=== PATIENT | male | born 1990 | race African-American/Black ===

== ENCOUNTER 2023-02-08 10:05 | Outpatient (AMB) | payer OTHER, SELFPAY ==
--- NOTE | 2023-02-08 10:15 | AM.OFFWIN_ITS ---
Intake Vital Signs 02/08/23 10:17 Height 5 ft 7 in Weight 220 lb BMI 34.5 BP 110/70 Blood Pressure Location Rt brachial Position Sitting Pulse 77 Pulse Source Pulse Oximeter Pulse Oximetry (%) 97 Oxygen Delivery Method Room Air Intake Visit Reasons: [employer] Pain in RT Wrist Intake Note: Patient here for right wrist pain that has been bothersome for about 1 week, he mentioned about 2 weeks ago he noticed some swelling in his knuckles but didnt think much of it but then pain started in wrist and then going into his hand. He states he has trouble with ROM. Patient Tobacco Use Status: Never used Tobacco Allergies peanuts Adverse Reaction (Severe, Uncoded 02/08/23 10:19) Anaphylaxis Do you need a note to return to daycare/school/sports/work: No HPI HPI Comments History of Present Illness Details This is a 32-year-old right hand dominant male with no stated past medical history presenting for evaluation of right wrist pain that he has had for the past week. Patient plays league football however denies any overt injury or trauma to his right wrist. patient seems he has pain with range of motion to his right volar wrist. Patient has not taken any medication for treatment of his discomfort. Additionally, patient is requesting testing for both gonorrhea and chlamydia. Patient denies any penile pain, skin lesions, new dysuria, penile discharge or new sexual contacts that are positive for gonorrhea or chlamydia. [facility] Social History Patient Tobacco Use Status: Never used Tobacco Review of Systems Const All systems reviewed & are unremarkable except as noted in HPI and below Musc Reports arthralgias (right wrist) and Denies joint swelling Skin/Breast Reports system reviewed and no additional complaints, except as documented Physical Exam Vital Signs: Last Vital Signs Pulse 77 02/08/23 10:17 BP 110/70 02/08/23 10:17 Pulse Ox 97 02/08/23 10:17 Oxygen Delivery Method Room Air 02/08/23 10:17 BMI result Body Mass Index 34.5 Const General: cooperative, healthy appearing, comfortable and well developed; No ill appearing Nutritional Appearance: average body habitus Orientation/consciousness: patient oriented x3 Limitations: no limitations Other: deferred by patient Skin General skin exam: no rashes or lesions noted Neuro General: patient oriented x3 Extrem General: Yes normal to inspection Right upper extremity: normal to inspection, full ROM (right wrist; no pain with supination/pronation) and wrist (right wrist) Details: normal to inspection and tenderness (volar surface ulnar aspect only; no induration, no erythema, no warmth); no unusual warmth Psych Appearance: grossly normal Mental Status: mental status grossly normal Insight: Good insight present (Psych) Judgement: Good judgement present (Psych) Assessment & Plan Assessment & Plan (1) Concern about STD in male without diagnosis: Comment: Urine gonorrhea and chlamydia testing will be sent. Code(s): Z71.1 - Person with feared health complaint in whom no diagnosis is made Plan: Patient instructed to use condoms with all sexual activity. (2) Sprain and strain of right wrist: Code(s): S63.501A - Unspecified sprain of right wrist, initial encounter; S66.911A - Strain of unspecified muscle, fascia and tendon at wrist and hand level, right hand, initial encounter Plan Patient placed in wrist splint and prescribed ibuprofen to take 4 times daily. Orders: Orders CT NG by PCR Today S63.501A - Unspecified sprain of right wrist, initial encounter, S66.911A - Strain of unspecified muscle, fascia and tendon at wrist and hand level, right hand, initial encounter, Z71.1 - Person with feared health complaint in whom no diagnosis is made Medications: New ibuprofen 600 mg PO Q6H PRN 30 tabs 0RF pain Coding Level of Care Code New Pt Level 4 (50772) Diagnoses Concern about STD in male without diagnosis Z71.1 Sprain and strain of right wrist S63.501A; S66.911A Time Spent (min) 25
[2023-02-08 10:17] VITALS: BP 110/70; PULSE 77; O2SAT 97; BMI 34.5
== END 2023-02-08 12:08 | disposition home or self-care (01) ==
PROVIDERS: Visit Provider Physician Assistant
DX: Z71.1 Person with feared health complaint in whom no diagnosis is made (principal); S63.501A Unspecified sprain of right wrist, initial encounter; S66.911A Strain of unspecified muscle, fascia and tendon at wrist and hand level, right hand, initial encounter
CPT/HCPCS: 99204

== ENCOUNTER 2023-02-08 11:37 | Outpatient (REF) | payer OTHER, SELFPAY ==
[2023-02-08 15:11] LABS: CT PCR NOT DETECTED (Not Detect.); NG PCR NOT DETECTED (Not Detect.)
== END 2023-02-08 11:38 | disposition home or self-care (01) ==
LOC: HO.LAB 11:37
PROVIDERS: Visit Provider Physician Assistant
DX: Z71.1 Person with feared health complaint in whom no diagnosis is made (principal); Z20.2 Contact with and (suspected) exposure to infections with a predominantly sexual mode of transmission
CPT/HCPCS: 0353U